=== PATIENT | male | born 1940 | race Caucasian/White ===

== ENCOUNTER → 2018-01-04 | Outpatient (CLI) | payer MEDICARE ==
[~2018-01-04] MED LIST: ALDACTONE25 MG PO; AMARYL2 M1 PO; AMINO ACID1 EACH PO; ASPIR 8181 MG PO; CALCITRIOL0.25 MCG PO; CATAPRES0.1 MG PO; CETIRIZINE HCL5 MG PO; COREG6.25 MG PO; COUMADIN 3 MG TA3 M1 PO; ENOXAPARIN30 MG/0.1 SUBQ; ENTRESTO 49 MG1 EACH PO; ENTRESTO 97 MG1 EACH PO; FLONASE 0.05%50 MCG NASAL; GLUCOPHAGE1000 MG PO; HYDROCHLOROTH12.5 M1 PO; HYDROCHLOROTHIA25 M2 PO; HYDROCODON-ACE1 EAC7 PO; HYDROCODONE-AP1 EAC6 PO; HYDROXYCHLOROQ200 M1 PO; IMURAN 50MG TAB50 M1 PO; KEFLEX500 MG PO; LASIX 40 MG TAB40 M2 PO; LEVOTHYROXINE0.05 MG PO; LISINOPRIL20 MG PO; MECLIZINE HCL12.5 MG PO; METFORMIN HCL500 MG PO; MUCINEX600 MG PO; OMEGA-31000 M1 PO; PRINIVIL20 MG PO; TRANSDERM-SCOP1 EACH TRANSDERM; UNICOMPLEX M TA1 TA1 PO; ZESTRIL20 MG PO; [UNRECOGNIZED DRUG - OTHER] PO
[2018-01-04 13:53] LABS: ABSOLUTE BASOPHILS 0.1 thou/uL (0.0-0.2); ABSOLUTE EOSINOPHILS 0.3 thou/uL (0.0-0.7); ABSOLUTE LYMPHOCYTES 1.1 thou/uL (0.8-5.3); ABSOLUTE MONOCYTES 0.6 thou/uL (0.0-1.2); ABSOLUTE NEUTROPHILS 4.7 thou/uL (1.6-8.1); BASOPHILS 1.2 %; EOSINOPHILS 3.7 %; HEMATOCRIT 44.4 % (42.0-52.0); LYMPHOCYTES 16.9 %; MCH 32.5 pg (26.0-34.0); MCHC 33.9 g/dL (28.0-37.0); MCV 95.9 fL (80.0-100.0); MONOCYTES 8.5 %; MPV 9.9 fl. (7.2-11.1); NUCLEATED RBCS 0 /100WBC; PLATELET COUNT* 165 thou/uL (150-400); POLYS 69.7 %; RBC 4.62 mil/uL (4.50-6.00); RDW-CV 14.1 % (10.5-14.5); WBC 6.7 thou/uL (4.0-11.0)
[2018-01-04 14:15] LABS: ALBUMIN 3.9 g/dL (3.4-5.0); CALCIUM 9.2 mg/dL (8.5-10.1); CREATININE 1.6 mg/dL (0.6-1.3); PHOSPHORUS* 3.3 mg/dL (2.5-4.9); POTASSIUM 4.3 mmol/L (3.5-5.1)
[2018-01-04 21:07] LABS: eGFR IF AFRICAN AMERICAN 51 (>59)
[2018-01-05 09:09] LABS: PARATHYROID HORMONE 49 pg/mL (15-65)
== END ==
LOC: M.LAB 13:27
PROVIDERS: Internal Medicine Nephrology
DX: N18.3 Chronic kidney disease, stage 3 (moderate) (principal); I48.91 Unspecified atrial fibrillation; I42.9 Cardiomyopathy, unspecified

== ENCOUNTER 2018-01-05 18:37 | Inpatient (IN) | payer MEDICARE ==
[~2018-01-05] VITALS: Ht 182.9 cm; Wt 96.2 kg
[~2018-01-05 18:37] MED LIST changes: -CETIRIZINE HCL5 MG PO; -ENTRESTO 97 MG1 EACH PO; -FLONASE 0.05%50 MCG NASAL; -MECLIZINE HCL12.5 MG PO; -MUCINEX600 MG PO; -TRANSDERM-SCOP1 EACH TRANSDERM
[2018-01-05 18:45] VITALS: BP 229/124
[2018-01-05 19:09] LABS: ABSOLUTE BASOPHILS 0.1 thou/uL (0.0-0.2); ABSOLUTE EOSINOPHILS 0.1 thou/uL (0.0-0.7); ABSOLUTE LYMPHOCYTES 0.9 thou/uL (0.8-5.3); ABSOLUTE MONOCYTES 0.4 thou/uL (0.0-1.2); EOSINOPHILS 1.3 %; HEMATOCRIT 46.5 % (42.0-52.0); HEMOGLOBIN 15.7 gm/dL (14.0-18.0); LYMPHOCYTES 11.6 %; MCH 32.5 pg (26.0-34.0); MCHC 33.9 g/dL (28.0-37.0); MCV 95.8 fL (80.0-100.0); MONOCYTES 5.6 %; NUCLEATED RBCS 0 /100WBC; PLATELET COUNT* 151 thou/uL (150-400); POLYS 80.5 %; RBC 4.85 mil/uL (4.50-6.00); RDW-CV 14.4 % (10.5-14.5); WBC 7.5 thou/uL (4.0-11.0)
[2018-01-05 19:14] LABS: ANION GAP 9 mmol/L (7-16); BUN 26 mg/dL (7-18); CALCIUM 9.5 mg/dL (8.5-10.1); CHLORIDE 104 mmol/L (98-107); CO2 28 mmol/L (21-32); CREATININE 1.5 mg/dL (0.6-1.3); GLUCOSE 164 mg/dL (70-99); POTASSIUM 4.1 mmol/L (3.5-5.1); SODIUM 141 mmol/L (136-145)
[2018-01-05 19:17] LABS: INR 2.1; PROTIME 20.5 Seconds (9.20-11.50)
[2018-01-05 19:21] LABS: ALBUMIN 3.9 g/dL (3.4-5.0); ALKALINE PHOSPHATASE 64 U/L (46-116); SGOT 20 U/L (15-37); SGPT 22 U/L (30-65); TOTAL BILIRUBIN 0.7 mg/dL (<0.1-1.0); TOTAL PROTEIN 7.9 g/dL (6.4-8.2); TROPONIN-I LEVEL <0.06 ng/mL (<0.06)
--- NOTE | 2018-01-05 20:38 | NUR ---
GAVE FOOD AND SPRITE TO PT AT THIS TIME.
--- NOTE | 2018-01-05 21:54 | NUR ---
ATTEMPTED TO GIVE REPORT AT 2144.
[2018-01-05 22:23] VITALS: BP 176/97
[2018-01-05 22:39] VITALS: BP 175/95
--- NOTE | 2018-01-05 23:08 | NUR ---
TOOK PT TO THE FLOOR AND GAVE REPORT TO THE MONITOR AND STORAGE BIN TENDER D/T THE CHARGE NURSE STATING SHE DID NOT HAVE TIME TO TAKE REPORT BECAUSE SHE WAS THE CHARGE NURSE. REPORT GIVEN TO TRACEY AT 2220.
[2018-01-05] MEDS ORDERED: ENTRESTO 97 MG1 EACH PO (23:44)
[2018-01-06] VITALS (8 sets, daily range): BP systolic 96–161; BP diastolic 53–102
--- NOTE | 2018-01-06 05:24 | NUR ---
PATIENT ARRIVED VIA CART FROM ED AROUND 2209. RECEIVED REPORT FROM Sasha WEBB. PT Awilda/CLIFF AND CHELA, REPORTING DIZZYNESS WHILE LYING DOWN. PT REPORTED NAUSEA BUT JUST WITH MOVEMENT AND DENIED WANTING ANY MEDS. V-PACED ON TELE MONITOR. ON ROOM AIR. IV SALINE LOCKED. UP SBA. BP ELEVATED, DR BROOKS NOTIFIED AND ORDERS RECEIVED FOR HS MEDS-SEE NOV. CALL LIGHT IN REACH, BEDALARM ON, WILL CONTINUE WITH PLAN OF CARE.
--- NOTE | 2018-01-06 09:30 | NUR ---
RECEIVED BEDSIDE REPORT. ASSUMED CARE OF PT AT 0730. BP ELEVATED OTHERWISE VSS. CARDIAC MONITORING IN PLACE A-PACED. AM ASSESSMENT AND VITALS COMPLETED CHARTED. PT ALERT AND ORIENTED X4 BUT FORGETFUL. PT ON RA. IV SLAINE LOCKED. PT CONTINUES TO HAVE REPORTS OF VERTIGO WITH STANDING. PT REPORTS HE LOST CONTROL OF BOWELS WHEN GETTING UP THIS AM. PT DENIES ANY COMPLAINTS OF PAIN OR DISCOMFORT THIS AM. DISCUSSED PLAN OF CARE WTIH PT AND SPOUSE. THEY COMMUNICATE UNDERSTANDING. CALL LIGHT IS WITHIN REACH. WILL CONTINUE TO MONITOR FOR DURAITON OF SHIFT.
--- NOTE | 2018-01-06 10:13 | EKG ---
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[place] : 1940 Requested By: Alana Mojica Order Number: [id number] MD: Jcarlos Carmona Measurements Intervals [place] Rate: 63 P: RI: QRS: 139 QRSD: 161 T: -51 QT: 479 QTc: 491 Interpretive Statements ventricular-paced rhythm No further analysis attempted due to paced rhythm Compared to ECG 08/01/2016 13:50:17 Ventricular premature complex(es) no longer present Electronically Signed On 01-06-2018 10:13:38 CDT by Jcarlos Carmona [email or web address] <ELECTRONICALLY SIGNED> By: Jcarlos Carmona MD, FACC 01/06/18 1013 16 16 Jcarlos Carmona MD, [facility] /EPI
--- NOTE | 2018-01-06 10:49 | NUR ---
CM ASSESSMENT: Pt is asleep, spoke with at bedside. Pt is normally A&O. Resides at home with his . Independent with ADLs, continues to drive and assist around the house as needed. No hx of HH. Hx of SNF at [facility]. Pt wears a cpap and home o2 at [facility] only, provided through [facility]. states that Pt continued to be dizzy this morning when he got up to use the restroom. Goal is to return home once medically stable. Following for disposition.
--- NOTE | 2018-01-06 17:11 | NUR ---
VSS. CARDIAC MONITORING IN PLACE WITH NO CHANGES THIS SHIFT. PT PROGRESSING TOWARDS GOALS. PT REMAINS ON RA. IV SALINE LOCKED. PT HAS HAD NO COMPLAINTS OF PAIN OR DISCOMFORT THIS SHIFT. PT'S VERTIGO HAS IMPROVED THIS SHIFT. PT WORKED WITH PHYSICAL THERAPY. CALL LIGHT IS WITHIN REACH. HOURLY ROUNDING. WILL CONTINUE TO MOTNIOR FOR [facility].
[2018-01-07 04:00] VITALS: BP 139/87
[2018-01-07 04:43] LABS: HEMATOCRIT 40.8 % (42.0-52.0); HEMOGLOBIN 13.9 gm/dL (14.0-18.0); MCH 32.4 pg (26.0-34.0); MCHC 34.1 g/dL (28.0-37.0); MCV 95.2 fL (80.0-100.0); MPV 10.6 fl. (7.2-11.1); RBC 4.29 mil/uL (4.50-6.00); RDW-CV 14.2 % (10.5-14.5); WBC 5.9 thou/uL (4.0-11.0)
[2018-01-07 04:47] LABS: INR 2.4; PROTIME 23.2 Seconds (9.20-11.50)
[2018-01-07 05:12] LABS: CALCIUM 9.5 mg/dL (8.5-10.1); CREATININE 1.8 mg/dL (0.6-1.3); POTASSIUM 3.6 mmol/L (3.5-5.1)
--- NOTE | 2018-01-07 06:49 | NUR ---
ASSUMED CARE AROUND 1930. PT A/OX4, APPEARS FORGETFUL AT TIMES, SLEPT SOME TONIGHT. VPACED ON TELE. VSS, AFEBRILE. ON ROOM AIR. IV SALINE LOCKED. UP SBA TO BR WITH WALKER. PT REPORTS SOME DIZZYNESS WITH ACTIVITY BUT NO NAUSEA THIS AM. PT REPORTS FEELING BETTER SO FAR TODAY. DENIED ANY PAIN. CALL LIGHT IN REACH, BEDALARM IN PLACE, WILL CONTINUE WITH PLAN OF CARE.
[2018-01-07 08:23] VITALS: BP 152/85
--- NOTE | 2018-01-07 10:40 | NUR ---
RECEIVED REPORT AND ASSUMED CARE AT 0730. VSS. CARDIAC MONITORING IN PLACE. PT DENIES ANY COMPLAINTS OF PAIN. PT UP WITH SBA IN ROOM, ON RA. ASSESSMENT COMPLETED CHARTED. PT EVALUATED BY PT/OT TODAY. DISCUSSED PLAN OF DM ITH PT AND HIS , VERBALIZED UNDERSTANDING. BED IN LOWEST POSITION. CALL LIGHT WITHIN REACH, BED ALARM ON. WILL CONTINUE TO MONITOR FOR REMAINDER OF THE SHIFT
[2018-01-07 10:56] VITALS: BP 141/86
[2018-01-07 10:57] VITALS: BP 147/81
[2018-01-07 10:58] VITALS: BP 151/86
[2018-01-07] MEDS ORDERED: TRANSDERM-SCOP1 EACH TRANSDERM (11:33)
[2018-01-07] MEDS ORDERED: CETIRIZINE HCL5 MG PO (11:33)
[2018-01-07] MEDS ORDERED: MUCINEX600 MG PO (11:33)
[2018-01-07] MEDS ORDERED: MECLIZINE HCL12.5 MG PO (11:33)
[2018-01-07] MEDS ORDERED: FLONASE 0.05%50 MCG NASAL (11:33)
[2018-01-07 13:55] VITALS: BP 151/86
--- NOTE | 2018-01-07 14:42 | NUR ---
DISCHARGE ORDERS PLACED IN CHART. CARDIAC MONITORING AND IV DISCONTINUED. PT DENIES ANY COMPLAINTS OF PAIN. DISCHARGE PAPERWORK COMPLETED AND DISCUSSED WITH PT AND HIS . ALL QUESTIONS AND CONCERNS ADDRESSED AT THIS TIME. PT ESCORTED BY NURSING STAFF IN W/C TO CAR. PT LEFT WITH IN THEIR PERSONAL CAR.
--- NOTE | 2018-01-12 17:26 | CON ---
[facility] [address] [place] [address] CONSULTATION Name: JOELLECHRISTOPHE Sissy Room: [address] IN .R.#: [id number] Admission: 01/05/18 Attend Phys: Karen Mejía Discharge: 01/07/18 Date of : 40 Report #: [id number] THIS REPORT FOR: //name// CC: Devendar Holloway DATE OF SERVICE: 01/06/2018 HISTORY OF PRESENT ILLNESS: This is a 77-year-old male patient who was evaluated by me for dizziness. He indicates that this morning he got up with the dizziness. It started spontaneously without any trauma. It was a severe dizziness. It had become somewhat better. Nothing makes it better or worse. REVIEW OF SYSTEMS: Indicate that he may have had dizziness like this before. He has a pacemaker, so he cannot have MRI. His GFR is 45, though that will make it difficult to do CT angio, so his workup neurologically is difficult. He still feels off balance. He had these symptoms before. They became better. He does have history of coronary artery disease, rheumatoid arthritis, high blood pressure and diabetes. REVIEW OF SYSTEMS: I carried out 14-point review of systems and this was his relevant 14-point review of system. When I saw him, he was not complaining of any eye, ENT, respiratory, GI, , musculoskeletal, constitutional, dermatological, hematological, psychiatric, throat, allergic symptom associated with present symptomatology. PAST MEDICAL HISTORY: Positive for dizziness like this, which became better. FAMILY HISTORY: Negative for any early age stroke. SOCIAL HISTORY: He is and his was there and she supplemented some of the history. He uses alcohol on special occasions. He does not smoke. PHYSICAL EXAMINATION: Indicate he is alert, responsive, able to follow simple and complex command. His speech, concentration, fund of knowledge and memory is at his baseline. Cranial nerve examination 2-12 looks unremarkable. Strength, sensation, reflexes and tone looks symmetrical. With diabetes, it does appear to be diminished. There is no cerebellar sign. I could not have a very good look at the patient's fundus. He is a well-developed individual who does not have any dysmorphic features of eyes, ears and face. His hearing and vision looks adequate. His pulses are somewhat difficult to feel. He has no edema, cyanosis or jaundice. His cardiac examinations indicate previous cardiac disease for which I will suggest Cardiology consult. No respiratory difficulty or rhonchi was noted. His blood pressure is 96/53. When he was admitted his blood pressure was 229/194. His pulse is 60 and temperature 97.4, respirations [place] 18[place] [address] CONSULTATION Name: CHRISTOPHE LAI Room: [address]#: [id number] Admission: 01/05/18 Attend Phys: Karen Mejía Discharge: 01/07/18 Date of : 40 Report #: [id number] LABORATORY DATA: His WBC count is 7.5. He did have a carotid Doppler, which showed mild plaquing. He did have a CT of the head, which did not show anything. IMPRESSION: I do not believe there is any neurological etiology for the patient's symptoms. I will suggest working up this patient for cardiac etiology, especially with so much fluctuation of the blood pressure, as well as other systemic etiologies including ENT. Neurological workup is difficult and is difficult to fully exclude the causes. He cannot have an MRI done because of pacemaker and cannot have a CT angio because of poor kidney function. I will suggest just working on the other etiologies in this patient. RECOMMENDATIONS: 1. I do not think we need to do any further neurological workup. 2. I will suggest a Cardiology consult, especially with such a wide fluctuation in the blood pressure and prior cardiac history. 3. I will also suggest an ENT consult. 4. If all that workup come out to be negative, then they can send him back and we can reevaluate him, but I do not believe presently any further neurological workup is needed in this patient. I did order a TSH and vitamin B12 to complete the workup, but otherwise nothing specific to add and we will sign off. Thank you very much for this referral. <ELECTRONICALLY SIGNED> By: Carmine Srinivasan MD 01/12/18 1726 1821 [id number] Srinivasan MD /nt
== END 2018-01-07 14:56 | disposition home or self-care (01) | DRG 153 ==
LOC: M.ERS 18:37 → M.TBA-ER 21:27 → M.2W 21:27
PROVIDERS: Internal Medicine; Nurse Practitioner Family; ADMIT Internal Medicine
DX: H65.00 Acute serous otitis media, unspecified ear (principal); I48.91 Unspecified atrial fibrillation; E11.9 Type 2 diabetes mellitus without complications; M06.9 Rheumatoid arthritis, unspecified; I12.9 Hypertensive chronic kidney disease with stage 1 through stage 4 chronic kidney disease, or unspecified chronic kidney disease; N18.3 Chronic kidney disease, stage 3 (moderate); R27.0 Ataxia, unspecified; Z95.0 Presence of cardiac pacemaker

== ENCOUNTER → 2018-02-01 | Outpatient (CLI) | payer MEDICARE ==
[~2018-02-01] MED LIST changes: +CETIRIZINE HCL5 MG PO; +ENTRESTO 97 MG1 EACH PO; +FLONASE 0.05%50 MCG NASAL; +MECLIZINE HCL12.5 MG PO; +MUCINEX600 MG PO; +TRANSDERM-SCOP1 EACH TRANSDERM
--- NOTE | 2018-02-01 15:33 | 2DMMODE ---
[place] [address] 2 D/M-MODE ECHOCARDIOGRAM Name: CHRISTOPHE LAI Room: [facility]#: [id number] Admission: 02/01/18 Attend Phys: Aldo Palacios, Discharge: Date of : 40 Date of Service: 02/01/18 1533 Report #: [id number] THIS REPORT FOR: //name// APPROVED REPORT Study performed: 02/01/2018 13:07:20 EXAM: Comprehensive 2D, Doppler, and color-flow Echocardiogram Patient Location: Out-Patient Status: routine BSA: 2.26 HR: 60 bpm BP: 140/92 mmHg Other Information Study Quality: Adequate Indications Congestive Heart Failure 2D Dimensions LVEF(%): 69.45 (>50%) IVSd: 13.67 (7-11mm) LVOT Diam: 20.99 (18-24mm) LVDd: 59.87 mm PWd: 13.20 (7-11mm) Ascending Ao: 36.98 (22-36mm) LVDs: 36.08 (25-40mm) Aortic Root: 26.34 mm Jay's LVEF: 69.45 % Volumes Left Atrial Volume (Systole) LA ESV Index: 40.20 mL/m2 Aortic Valve AoV Peak Ron.: 1.14 m/s AO Peak Gr.: 5.22 mmHg LVOT Max P.41 mmHg AO Mean Gr.: 3.15 mmHg LVOT Mean P.00 mmHg LVOT Max V: 0.78 m/s AO V2 VTI: 21.20 cm LVOT Mean V: 0.45 m/s YUMIKO (VTI): 2.26 cm2 LVOT V1 VTI: 13.85 cm Mitral Valve MV Decel. Time: 180.49 ms MV PHT: 52[place]34 [place] [address] 2 D/M-MODE ECHOCARDIOGRAM Name: JOELLECHRISTOPHE G Room: [facility]#: [id number] Admission: 02/01/18 Attend Phys: Aldo Palacios, Discharge: Date of : 40 Date of Service: 02/01/18 1533 Report #: [id number] MVA (PHT): 4.20 cm2 TDI Medial E' Ron.: 0.10 m/s Lateral E' Ron.: 0.09 m/s Pulmonary Valve PV Peak Ron.: 0.91 m/s PV Peak Gr.: 3.33 mmHg Tricuspid Valve TR Peak Gr.: 31.88 mmHg RVSP: 36.88 mmHg Left Ventricle The left ventricle is normal size. There are segmental wall motion abnormalities with inferbasilar and lateral hypokinesis suggested. Mild concentric left ventricular hypertrophy. Left ventricular systolic function is moderately decreased. LVEF is 40%. Right Ventricle The right ventricle is normal size. The right ventricular systolic function is normal. Pacemaker lead is present in the right ventricle. Atria Left atrium is mildly dilated. Pacemaker lead is present in the right atrium. Aortic Valve Aortic valve is mildly calcified. Trace aortic regurgitation. There is no aortic valvular stenosis. Mitral Valve The mitral valve is normal in structure. Mild to moderate mitral regurgitation. No evidence of mitral valve stenosis. Tricuspid Valve The tricuspid valve is normal in structure. Mild tricuspid regurgitation. The RVSP is _36.9 mmHg. Pulmonic Valve The pulmonary valve is normal in structure. There is no pulmonic valvular regurgitation. Great Vessels The aortic root is normal in size. IVC is normal in size and collapses with >50% [place] [address] 2 D/M-MODE ECHOCARDIOGRAM Name: CHRISTOPHE LAI Room: [facility]#: [id number] Admission: 02/01/18 Attend Phys: Aldo Palacios, Discharge: Date of : 40 Date of Service: 02/01/18 1533 Report #: [id number] Pericardium There is no pericardial effusion. <Conclusion> The left ventricle is normal size. Mild concentric left ventricular hypertrophy. Left ventricular systolic function is moderately decreased. LVEF is 40%. The right ventricle is normal size. Left atrium is mildly dilated. Aortic valve is mildly calcified. Trace aortic regurgitation. There is no aortic valvular stenosis. The mitral valve is normal in structure. Mild to moderate mitral regurgitation. No evidence of mitral valve stenosis. The tricuspid valve is normal in structure. Mild tricuspid regurgitation. The RVSP is _36.9 mmHg. IVC is normal in size and collapses with >50% inspiration There is no pericardial effusion. There are segmental wall motion abnormalities with inferbasilar and lateral hypokinesis suggested. Pacemaker lead is present in the right ventricle. <ELECTRONICALLY SIGNED> By: Aj Syed MD, FACC 02/01/18 1533 1533 1533 Aj Syed MD, FACC /INF
== END ==
LOC: M.CRD 12:53
DX: I42.8 Other cardiomyopathies (principal)

== ENCOUNTER → 2018-07-07 | Outpatient (CLI) | payer MEDICARE ==
[2018-07-07 12:57] LABS: ABSOLUTE BASOPHILS 0.1 thou/uL (0.0-0.2); ABSOLUTE EOSINOPHILS 0.1 thou/uL (0.0-0.7); ABSOLUTE LYMPHOCYTES 0.8 thou/uL (0.8-5.3); ABSOLUTE MONOCYTES 0.4 thou/uL (0.0-1.2); ABSOLUTE NEUTROPHILS 3.3 thou/uL (1.6-8.1); BASOPHILS 1.3 %; EOSINOPHILS 2.9 %; HEMATOCRIT 43.2 % (42.0-52.0); HEMOGLOBIN 14.6 gm/dL (14.0-18.0); LYMPHOCYTES 16.3 %; MCH 32.9 pg (26.0-34.0); MCHC 33.7 g/dL (28.0-37.0); MCV 97.5 fL (80.0-100.0); MONOCYTES 8.2 %; MPV 10.1 fl. (7.2-11.1); NUCLEATED RBCS 0 /100WBC; PLATELET COUNT* 143 thou/uL (150-400); POLYS 71.3 %; RBC 4.43 mil/uL (4.50-6.00); RDW-CV 14.5 % (10.5-14.5); WBC 4.7 thou/uL (4.0-11.0)
[2018-07-07 13:23] LABS: ALBUMIN 3.6 g/dL (3.4-5.0); CALCIUM 9.5 mg/dL (8.5-10.1); CREATININE 1.8 mg/dL (0.6-1.3); PHOSPHORUS* 2.7 mg/dL (2.5-4.9); POTASSIUM 4.1 mmol/L (3.5-5.1)
[2018-07-07 14:00] LABS: INR 2.1; PROTIME 21.5 Seconds (9.20-11.50)
[2018-07-07 19:08] LABS: eGFR IF AFRICAN AMERICAN 41 (>59)
[2018-07-08 12:06] LABS: PARATHYROID HORMONE 35 pg/mL (15-65)
== END ==
LOC: M.LAB 12:31
PROVIDERS: Internal Medicine Nephrology
DX: I12.9 Hypertensive chronic kidney disease with stage 1 through stage 4 chronic kidney disease, or unspecified chronic kidney disease (principal); E11.22 Type 2 diabetes mellitus with diabetic chronic kidney disease; N18.3 Chronic kidney disease, stage 3 (moderate); I50.9 Heart failure, unspecified; M06.9 Rheumatoid arthritis, unspecified; Z72.89 Other problems related to lifestyle

== ENCOUNTER → 2019-01-03 | Outpatient (CLI) | payer MEDICARE ==
[2019-01-03 11:41] LABS: ABSOLUTE BASOPHILS 0.1 thou/uL (0.0-0.2); ABSOLUTE EOSINOPHILS 0.2 thou/uL (0.0-0.7); ABSOLUTE LYMPHOCYTES 0.8 thou/uL (0.8-5.3); ABSOLUTE MONOCYTES 0.4 thou/uL (0.0-1.2); ABSOLUTE NEUTROPHILS 3.2 thou/uL (1.6-8.1); BASOPHILS 1.4 %; EOSINOPHILS 4.3 %; HEMATOCRIT 41.9 % (42.0-52.0); HEMOGLOBIN 14.2 gm/dL (14.0-18.0); MCH 32.4 pg (26.0-34.0); MCHC 33.9 g/dL (28.0-37.0); MCV 95.6 fL (80.0-100.0); MONOCYTES 8.8 %; MPV 9.3 fl. (7.2-11.1); NUCLEATED RBCS 0 /100WBC; PLATELET COUNT* 153 thou/uL (150-400); POLYS 67.5 %; RBC 4.38 mil/uL (4.50-6.00); RDW-CV 14.4 % (10.5-14.5); WBC 4.7 thou/uL (4.0-11.0)
[2019-01-03 11:51] LABS: ALBUMIN 3.6 g/dL (3.4-5.0); CALCIUM 9.2 mg/dL (8.5-10.1); CREATININE 1.7 mg/dL (0.6-1.3); PHOSPHORUS* 2.7 mg/dL (2.5-4.9)
[2019-01-03 12:00] LABS: CREATININE 1.7 mg/dL (0.6-1.3); PHOSPHORUS* 2.8 mg/dL (2.5-4.9)
== END ==
LOC: M.LAB 11:21
PROVIDERS: Internal Medicine Nephrology
DX: E11.29 Type 2 diabetes mellitus with other diabetic kidney complication (principal); I50.9 Heart failure, unspecified

== ENCOUNTER → 2019-01-10 | Outpatient (CLI) | payer MEDICARE ==
--- NOTE | 2019-01-10 13:33 | 2DMMODE ---
[place] [address] 2 D/M-MODE ECHOCARDIOGRAM Name: CHRISTOPHE LAINN Room: [facility]#: [id number] Admission: 01/10/19 Attend Phys: Aldo Palacios, Discharge: Date of : 40 Date of Service: 01/10/19 1333 Report #: [id number] THIS REPORT FOR: //name// APPROVED REPORT Study performed: 01/10/2019 11:03:45 EXAM: Comprehensive 2D, Doppler, and color-flow Echocardiogram Patient Location: Out-Patient BSA: 2.27 HR: 60 bpm BP: 140/90 mmHg Other Information Study Quality: Fair Indications Congestive Heart Failure Cardiomyopathy 2D Dimensions IVSd: 14.49 (7-11mm) LVOT Diam: 20.90 (18-24mm) LVDd: 52.32 mm PWd: 12.65 (7-11mm) Ascending Ao: 34.62 (22-36mm) LVDs: 46.11 (25-40mm) Aortic Root: 36.00 mm Volumes Left Atrial Volume (Systole) LA ESV Index: 30.90 mL/m2 Aortic Valve AoV Peak Ron.: 1.16 m/s AO Peak Gr.: 5.35 mmHg LVOT Max P.04 mmHg AO Mean Gr.: 2.92 mmHg LVOT Mean P.89 mmHg LVOT Max V: 0.71 m/s AO V2 VTI: 19.06 cm LVOT Mean V: 0.42 m/s YUMIKO (VTI): 2.45 cm2 LVOT V1 VTI: 13.61 cm Mitral Valve MV Decel. Time: 256.02 ms MV PHT: 74.25 ms MVA (PHT): 2.96 cm2 [place] [address] 2 D/M-MODE ECHOCARDIOGRAM Name: CHRISTOPHE LAI Room: [facility]#: [id number] Admission: 01/10/19 Attend Phys: Aldo Palacios, Discharge: Date of : 40 Date of Service: 01/10/19 1333 Report #: [id number] TDI Medial E' Ron.: 0.08 m/s Lateral E' Ron.: 0.08 m/s Pulmonary Valve PV Peak Ron.: 0.78 m/s PV Peak Gr.: 2.41 mmHg Tricuspid Valve RAP Estimate: 5.00 mmHg TR Peak Gr.: 36.95 mmHg RVSP: 41.95 mmHg PA Pressure: 41.95 mmHg Left Ventricle The left ventricle is normal size. There is inferobasilar hypo-akinesis. Borderline concentric left ventricular hypertrophy. Left ventricular systolic function is mildly decreased. LVEF is 45%. Right Ventricle The right ventricle is normal size. The right ventricular systolic function is normal. Pacemaker lead is present in the right ventricle. Atria Left atrium is mildly dilated. Pacemaker lead is present in the right atrium. Aortic Valve Aortic valve is mildly calcified. Trace aortic regurgitation. There is no aortic valvular stenosis. Mitral Valve The mitral valve is normal in structure. Mild to moderate mitral regurgitation. No evidence of mitral valve stenosis. Tricuspid Valve The tricuspid valve is normal in structure. Mild to moderate tricuspid regurgitation. Pulmonic Valve The pulmonary valve is normal in structure. There is no pulmonic valvular regurgitation. Great Vessels The aortic root is normal in size. IVC is normal in size and collapses <50% [place] [address] 2 D/M-MODE ECHOCARDIOGRAM Name: CHRISTOPHE LAI Room: [facility]#: [id number] Admission: 01/10/19 Attend Phys: Aldo Palacios, Discharge: Date of : 40 Date of Service: 01/10/19 1333 Report #: [id number] Pericardium There is no pericardial effusion. <Conclusion> The left ventricle is normal size. Borderline concentric left ventricular hypertrophy. Left ventricular systolic function is mildly decreased. LVEF is 45%. The right ventricle is normal size. Left atrium is mildly dilated. Aortic valve is mildly calcified. Trace aortic regurgitation. There is no aortic valvular stenosis. Mild to moderate mitral regurgitation. The tricuspid valve is normal in structure. Mild to moderate tricuspid regurgitation. IVC is normal in size and collapses <50% with inspiration. There is no pericardial effusion. There is inferobasilar hypo-akinesis. Pacemaker lead is present in the right ventricle. The mitral valve is normal in structure. <ELECTRONICALLY SIGNED> By: Aj Syed MD, [facility] 01/10/19 1333 1333 133 Aj Syed MD, FACC /INF
== END ==
LOC: M.CRD 10:21
DX: I08.3 Combined rheumatic disorders of mitral, aortic and tricuspid valves (principal); I11.0 Hypertensive heart disease with heart failure; I50.9 Heart failure, unspecified; I42.8 Other cardiomyopathies

== ENCOUNTER → 2019-07-01 | Outpatient (CLI) | payer MEDICARE ==
[2019-07-01 14:51] LABS: ABSOLUTE BASOPHILS 0.1 thou/uL (0.0-0.2); ABSOLUTE EOSINOPHILS 0.2 thou/uL (0.0-0.7); ABSOLUTE LYMPHOCYTES 0.9 thou/uL (0.8-5.3); ABSOLUTE MONOCYTES 0.5 thou/uL (0.0-1.2); ABSOLUTE NEUTROPHILS 3.4 thou/uL (1.6-8.1); BASOPHILS 1.1 %; EOSINOPHILS 4.2 %; HEMATOCRIT 40.2 % (42.0-52.0); HEMOGLOBIN 13.7 gm/dL (14.0-18.0); LYMPHOCYTES 18.5 %; MCH 33.2 pg (26.0-34.0); MCV 97.6 fL (80.0-100.0); MONOCYTES 9.4 %; MPV 10.1 fl. (7.2-11.1); NUCLEATED RBCS 0 /100WBC; PLATELET COUNT* 145 thou/uL (150-400); POLYS 66.8 %; RBC 4.12 mil/uL (4.50-6.00); RDW-CV 14.3 % (10.5-14.5); WBC 5.1 thou/uL (4.0-11.0)
[2019-07-01 15:00] LABS: ALBUMIN 3.4 g/dL (3.4-5.0); CREATININE 1.6 mg/dL (0.6-1.3); PHOSPHORUS* 2.9 mg/dL (2.5-4.9); POTASSIUM 4.1 mmol/L (3.5-5.1)
[2019-07-01 21:48] LABS: CALCIUM 8.7 mg/dL (8.5-10.1); CREATININE 1.6 mg/dL (0.6-1.3); PHOSPHORUS* 2.9 mg/dL (2.5-4.9)
[2019-07-29 13:26] LABS: INR 3.3; PROTIME 32.1 Seconds (9.20-11.50)
== END ==
LOC: M.LAB 14:20
PROVIDERS: Internal Medicine Nephrology
DX: I13.0 Hypertensive heart and chronic kidney disease with heart failure and stage 1 through stage 4 chronic kidney disease, or unspecified chronic kidney disease (principal); N18.3 Chronic kidney disease, stage 3 (moderate); I50.9 Heart failure, unspecified; E11.22 Type 2 diabetes mellitus with diabetic chronic kidney disease

== ENCOUNTER → 2020-06-14 | Outpatient (CLI) | payer MEDICARE ==
[2020-06-14 14:53] LABS: HEMATOCRIT 41.5 % (42.0-52.0); HEMOGLOBIN 13.9 gm/dL (14.0-18.0)
[2020-06-14 15:16] LABS: ALBUMIN 3.3 g/dL (3.4-5.0); CALCIUM 8.9 mg/dL (8.5-10.1); CREATININE 1.9 mg/dL (0.6-1.3); PHOSPHORUS* 2.5 mg/dL (2.5-4.9); POTASSIUM 4.4 mmol/L (3.5-5.1); TOTAL BILIRUBIN 0.9 mg/dL (<0.1-1.0); TOTAL PROTEIN 6.9 g/dL (6.4-8.2)
[2020-06-14 15:22] LABS: CALCIUM 8.7 mg/dL (8.5-10.1); CREATININE 1.9 mg/dL (0.6-1.3); PHOSPHORUS* 2.5 mg/dL (2.5-4.9)
== END ==
LOC: M.LAB 14:17
PROVIDERS: ATTEND Internal Medicine Nephrology
DX: N25.81 Secondary hyperparathyroidism of renal origin (principal); N18.3 Chronic kidney disease, stage 3 (moderate)

== ENCOUNTER → 2020-08-01 | Outpatient (CLI) | payer MEDICARE ==
[~2020-08-01] MED LIST changes: +COREG25 MG PO; +STIOLTO RESPIMAT4 GM INH; +VITAMIN D250 MCG PO
[2020-08-01 09:30] LABS: HEMATOCRIT 43.5 % (42.0-52.0); HEMOGLOBIN 14.7 gm/dL (14.0-18.0); MCH 32.6 pg (26.0-34.0); MCHC 33.7 g/dL (28.0-37.0); MCV 96.8 fL (80.0-100.0); RBC 4.49 mil/uL (4.50-6.00); RDW-CV 15.1 % (10.5-14.5); WBC 5.3 thou/uL (4.0-11.0)
[2020-08-01 09:37] LABS: CALCIUM 8.9 mg/dL (8.5-10.1); CREATININE 1.7 mg/dL (0.6-1.3); POTASSIUM 4.1 mmol/L (3.5-5.1)
[2020-08-01 09:41] LABS: INR 2.2; PROTIME 21.9 Seconds (9.20-11.50)
--- NOTE | 2020-08-01 11:37 | EKG ---
[place] [address] ELECTROCARDIOGRAM REPORT Name: JOELLECHRISTOPHE FAINA Room: 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1940 Requested By: Jonathan Khoury Order Number: [id number] Reading MD: Jcarlos Carmona Measurements Intervals [place] Rate: 62 P: 0 NV: 200 QRS: 269 QRSD: 157 T: 109 QT: 473 QTc: 481 Interpretive Statements Ventricular-paced rhythm No further analysis attempted due to paced rhythm Compared to ECG 01/05/2018 19:17:02 No significant changes Electronically Signed On 08-01-2020 11:37:10 EXPOSURE MACHINE OPERATOR by Jcarlos Carmona [email or web address] <ELECTRONICALLY SIGNED> By: Jcarlos Carmona MD, [facility] 08/01/20 1137 0942 0942 Jcarlos Carmona MD, [facility] /EPI
== END ==
LOC: M.LAB 07-31 08:25
PROVIDERS: ATTEND Surgery
DX: Z01.812 Encounter for preprocedural laboratory examination (principal); Z20.828 Contact with and (suspected) exposure to other viral communicable diseases; K40.90 Unilateral inguinal hernia, without obstruction or gangrene, not specified as recurrent; I49.8 Other specified cardiac arrhythmias

== ENCOUNTER → 2020-08-07 | Day surgery (SDC) | payer MEDICARE ==
[~2020-08-07] MED LIST changes: +OXYCODONE HCL 55 MG PO; +PERCOCET 5-3251 EACH PO
--- NOTE | ~2020-08-07 | OP ---
[address] [address] OPERATIVE REPORT Name: JOELLECHRISTOPHE EISENBERG Room: [facility]#: [id number] Admission: 08/07/20 Attend Phys: Jonathan Khoury DO Discharge: Date of : 40 Report #: [id number] THIS REPORT FOR: //name// cc: Devendra Knutson Bradley L. DO ~ CC: Jonathan Palacios DICTATED BY: Sage Saldivar DO DATE OF SERVICE: 08/07/2020 PREOPERATIVE DIAGNOSIS: Incarcerated umbilical hernia. POSTOPERATIVE DIAGNOSIS: Incarcerated umbilical hernia. PRIMARY SURGEON: Jonathan Khoury DO CO-SURGEON: Sage Saldivar DO, PGY4. 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 OPERATION PERFORMED: Umbilical hernia repair with mesh. ANESTHESIA TYPE: General and local. ESTIMATED BLOOD LOSS: 5 mL. SPECIMEN REMOVED: Hernia sac and contents, incarcerated omentum. COMPLICATIONS: None. FINDINGS: Omentum containing incarcerated umbilical hernia. IMPLANTS: Ventralex ST 6.4 cm round hernia mesh. INDICATIONS FOR PROCEDURE: The patient is a pleasant 80-year-old male who presented to the office with chief complaint of umbilical bulge and pain and tenderness associated with it with some overlying skin discoloration. We recommended outpatient open hernia repair with mesh. Full discussion of procedure, alternatives, risks, and possible complications were discussed include but not limited to bleeding, infection, postoperative pain, scarring, hernia recurrence, need for further surgery, injury to other underlying abdominal structures mainly bowel, mesh complications, need for mesh removal and anesthesia risks. The patient voiced understanding of these risks and agreed to [address] [address] OPERATIVE REPORT Name: CHRISTOPHE LAI Room: [facility].#: [id number] Admission: 08/07/20 Attend Phys: Jonathan Khoury, DO Discharge: Date of : 40 Report #: [id number] proceed with surgery. DESCRIPTION OF PROCEDURE: The patient was again seen and examined in the preoperative holding area. Fully informed written consent was obtained. The surgical site was marked with a marking pen. The patient received 2 grams Ancef for preoperative antibiotics. He was subsequently transported to the operating room suite and placed on the operating room table in a comfortable supine position. At this time, anesthesia induced general anesthesia via LMA and this was successful. Arms were outstretched on arm boards. SCDs were placed to bilateral lower extremity calves. Grounding pad was placed to the right lateral thigh. All extremities and joints were padded and protected. Safety strap and warm blankets were placed across the patient's lap. Upper extremity Jong Hugger and warm blankets were placed across the patient's chest. The patient was then prepped and draped using standard sterile fashion. Time-out was performed prior to the onset of the procedure. I began by making a horizontal incision just superior to the umbilicus. We then dissected down through dermis and subcutaneous tissue using electrocautery and Adson's forceps to grasping the skin. The umbilical stalk was dissected out circumferentially. The hernia sac and contents were dissected free from the umbilical stalk. Umbilical stalk was ligated at the base of the fascia. The hernia sac was entered at the fascial defect edge and this was ligated circumferentially around the base. The hernia sac was then inverted over the incarcerated omentum and a small portion of omentum and hernia sac were ligated and sent off to the back table to be sent for permanent pathology. The remainder of the omentum was then reduced back into the peritoneal cavity. Finger sweep was performed to ensure there were no intra-abdominal adhesions and there was adequate landing supply for mesh. The defect was approximately 2-2.5 cm. A 6.[address] hernia mesh was opened on the back table drown into normal saline and placed into the abdomen, as an underlay mesh. This was then sutured into place using interrupted 0 Prolenes first at the left and right apices using the provided strap. Then, the remainder of the mesh and fascia was closed using interrupted Prolene suture. Once the fascia was closed, the mesh was sewn in place. The umbilical stalk was reimplanted into the fascia using a 3-0 Vicryl. A layered closure was then performed using 3-0 Vicryl in an interrupted fashion of the subcutaneous and deep dermal layers. Skin was then closed using a running subcuticular 4-0 Monocryl and 30 mL of 0.5% Marcaine were injected for total for local anesthetic. The abdomen was cleansed with wet and dry lap and sterile dressing and Dermabond skin glue was applied. An abdominal binder was then placed after the procedure before the patient went to the PACU. He was extubated in the OR and transferred to PACU in stable condition after brief recovery from anesthesia. [address] [address] OPERATIVE REPORT Name: JOELLE,CHRISTOPHE FAINA Room: [facility]#: [id number] Admission: 08/07/20 Attend Phys: Jonathan Khoury DO Discharge: Date of : 40 Report #: [id number] PLAN: Discharged to home. Follow up in the office with Dr. Khoury in 1 week. By: 1325 [id number] Khoury DO /nt
[2020-08-07 09:38] LABS: INR 1.1; PROTIME 11.6 Seconds (9.20-11.50)
--- NOTE | 2020-08-09 17:07 | PATH ---
[address] [address] PATHOLOGY RPT PROCEDURE Name: CHRISTOPHE LAI Room: [facility].R.#: [id number] Admission: 08/07/20 Date of : 40 Discharge: Report #: [id number] Path Case #: [id number] [facility] Accession Number: [id number] . 01 Material submitted: . hernia - HERNIA SAC, INCARCERATED OMENTUM . 01 Clinical history: . UMBILICAL HERNIA; INCARCERATED UMBILICAL HERNIA . 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 (VANESA:pit 08/09/2020) QTP 08/09/2020 1310 Local . 02 Electronically signed: . Meng Mo MD, Pathologist NPI- [id number] . 01 Gross description: . The specimen is received in formalin, labeled "Kandis, Christophe, hernia sac and incarcerated omentum" and consists of a segment of pink-dill membranous tissue and yellow orange lobulated tissue measuring 4.5 x 2.8 x 2.3 cm. Sectioning reveals focal congestion and no gross lesions. End Packer tissue is submitted in A1. (SDY; 08/08/2020) SYU/SYU 08/08/2020 1326 Local . 02 Pathologist provided ICD-10: K42.9 . 02 CPT . 744507 Specimen Comment: A courtesy copy of this report has been sent to [phone], [phone] Specimen Comment: [phone], Specimen Comment: Report sent to ,DR JARRELL / DR MCAEDO Performed at: [address] [facility] [address], [place], [place] [id number] MD Orestes Miner MD Phone: [phone] Performed at: 02 [facility] [place] [address], [place], [place] [id number] MD Meng Mo MD Phone: [phone]
== END | disposition home or self-care (01) ==
LOC: M.SUR 08:57
PROVIDERS: ATTEND Surgery
DX: K42.0 Umbilical hernia with obstruction, without gangrene (principal); I13.0 Hypertensive heart and chronic kidney disease with heart failure and stage 1 through stage 4 chronic kidney disease, or unspecified chronic kidney disease; I50.22 Chronic systolic (congestive) heart failure; E11.22 Type 2 diabetes mellitus with diabetic chronic kidney disease; N18.2 Chronic kidney disease, stage 2 (mild); I48.20 Chronic atrial fibrillation, unspecified; I42.8 Other cardiomyopathies; G47.30 Sleep apnea, unspecified; Z79.899 Other long term (current) drug therapy; Z98.890 Other specified postprocedural states; Z95.810 Presence of automatic (implantable) cardiac defibrillator; Z82.49 Family history of ischemic heart disease and other diseases of the circulatory system

== ENCOUNTER → 2020-12-21 | Outpatient (CLI) | payer MEDICARE ==
[2020-12-21 12:13] LABS: ABSOLUTE BASOPHILS 0.1 thou/uL (0.0-0.2); ABSOLUTE EOSINOPHILS 0.2 thou/uL (0.0-0.7); ABSOLUTE MONOCYTES 0.4 thou/uL (0.0-1.2); ABSOLUTE NEUTROPHILS 3.9 thou/uL (1.6-8.1); BASOPHILS 1.2 %; EOSINOPHILS 3.9 %; HEMATOCRIT 44.9 % (42.0-52.0); HEMOGLOBIN 14.9 gm/dL (14.0-18.0); LYMPHOCYTES 18.6 %; MCHC 33.2 g/dL (28.0-37.0); MCV 96.2 fL (80.0-100.0); MONOCYTES 7.2 %; NUCLEATED RBCS 0 /100WBC; PLATELET COUNT* 154 thou/uL (150-400); POLYS 69.1 %; RBC 4.67 mil/uL (4.50-6.00); RDW-CV 14.5 % (10.5-14.5); WBC 5.6 thou/uL (4.0-11.0)
[2020-12-21 12:23] LABS: ALBUMIN 3.6 g/dL (3.4-5.0); CALCIUM 9.6 mg/dL (8.5-10.1); CREATININE 1.6 mg/dL (0.6-1.3); POTASSIUM 4.2 mmol/L (3.5-5.1)
[2020-12-21 12:33] LABS: CALCIUM 8.9 mg/dL (8.5-10.1); CREATININE 1.6 mg/dL (0.6-1.3); PHOSPHORUS* 2.9 mg/dL (2.5-4.9)
== END ==
LOC: M.LAB 11:47
PROVIDERS: ATTEND Internal Medicine Nephrology
DX: N18.32 Chronic kidney disease, stage 3b (principal)

== ENCOUNTER → 2021-04-12 | Outpatient (CLI) | payer MEDICARE | LOC: M.CT 07:45 | PROVIDERS: ATTEND Family Medicine | DX: K86.2 Cyst of pancreas (principal); N28.1 Cyst of kidney, acquired; N20.0 Calculus of kidney; M47.816 Spondylosis without myelopathy or radiculopathy, lumbar region ==

== ENCOUNTER 2021-09-08 11:58 | Emergency (ER) | payer MEDICARE ==
[~2021-09-08] VITALS: Ht 182.9 cm; Wt 96.2 kg
[2021-09-08 13:05] LABS: ABSOLUTE BASOPHILS 0.1 thou/uL (0.0-0.2); ABSOLUTE EOSINOPHILS 0.2 thou/uL (0.0-0.7); ABSOLUTE LYMPHOCYTES 0.6 thou/uL (0.8-5.3); ABSOLUTE MONOCYTES 0.4 thou/uL (0.0-1.2); ABSOLUTE NEUTROPHILS 4.8 thou/uL (1.6-8.1); BASOPHILS 0.9 %; EOSINOPHILS 2.6 %; HEMOGLOBIN 12.2 gm/dL (14.0-18.0); LYMPHOCYTES 10.1 %; MCH 32.3 pg (26.0-34.0); MCHC 33.8 g/dL (28.0-37.0); MCV 95.5 fL (80.0-100.0); MONOCYTES 6.9 %; MPV 10.1 fl. (7.2-11.1); NUCLEATED RBCS 0 /100WBC; PLATELET COUNT* 137 thou/uL (150-400); POLYS 79.5 %; RBC 3.77 mil/uL (4.50-6.00); RDW-CV 13.5 % (10.5-14.5); WBC 6.1 thou/uL (4.0-11.0)
[2021-09-08] MEDS ORDERED: WARFARIN SODIUM3 MG PO (13:11)
[2021-09-08] MEDS ORDERED: WARFARIN SODIUM5 MG PO (13:11)
[2021-09-08 13:13] LABS: CALCIUM 8.5 mg/dL (8.5-10.1); CREATININE 1.8 mg/dL (0.6-1.3); POTASSIUM 3.9 mmol/L (3.5-5.1)
[2021-09-08] MEDS ORDERED: ENTRESTO 97 MG1 EACH PO (13:13)
[2021-09-08 13:17] LABS: INR 3.2; PROTIME 31.9 Seconds (9.20-11.50)
[2021-09-08] MEDS ORDERED: DOXYCYCLINE 10100 MG PO (13:50)
[2021-09-08 14:11] VITALS: BP 98/53
== END 2021-09-08 14:12 | disposition home or self-care (01) ==
LOC: M.ERS 11:58
PROVIDERS: Physician Assistant
DX: S80.11XA Contusion of right lower leg, initial encounter (principal); E11.9 Type 2 diabetes mellitus without complications; I50.9 Heart failure, unspecified; M19.90 Unspecified osteoarthritis, unspecified site; E03.9 Hypothyroidism, unspecified; Z79.899 Other long term (current) drug therapy; X58.XXXA Exposure to other specified factors, initial encounter; Y93.89 Activity, other specified; Y92.89 Other specified places as the place of occurrence of the external cause; Y99.8 Other external cause status

== ENCOUNTER 2021-09-13 13:14 | Inpatient (IN) | payer MEDICARE ==
[~2021-09-13] VITALS: Ht 182.9 cm; Wt 101.2 kg
[~2021-09-13 13:14] MED LIST changes: +DOXYCYCLINE 10100 MG PO; +WARFARIN SODIUM3 MG PO; +WARFARIN SODIUM5 MG PO
[2021-09-13 14:01] VITALS: BP 130/66
[2021-09-13 14:18] LABS: ABSOLUTE EOSINOPHILS 0.2 thou/uL (0.0-0.7); ABSOLUTE LYMPHOCYTES 0.6 thou/uL (0.8-5.3); ABSOLUTE MONOCYTES 0.5 thou/uL (0.0-1.2); ABSOLUTE NEUTROPHILS 3.5 thou/uL (1.6-8.1); BASOPHILS 0.9 %; EOSINOPHILS 3.6 %; HEMATOCRIT 39.1 % (42.0-52.0); HEMOGLOBIN 12.9 gm/dL (14.0-18.0); MCV 96.9 fL (80.0-100.0); MONOCYTES 9.5 %; MPV 10.1 fl. (7.2-11.1); NUCLEATED RBCS 0 /100WBC; PLATELET COUNT* 157 thou/uL (150-400); RBC 4.04 mil/uL (4.50-6.00); RDW-CV 13.4 % (10.5-14.5); WBC 4.7 thou/uL (4.0-11.0)
--- NOTE | 2021-09-13 14:21 | EKG ---
[place] [address] ELECTROCARDIOGRAM REPORT Name: JOELLECHRISTOPHE EISENBERG Room: [facility]#: [id number] Admission: 09/13/21 Attend Phys: Discharge: Date of : 40 Date of Service: 09/13/21 1411 Report #: [id number] THIS REPORT FOR: //name// [facility] ED Test Date: 2021-09-13 Test Time: 14:11:24 Pat Name: CHRISTOPHE LAI Department: Room: Gender: [employer] Architect: [facility] : 1940 Requested By: Moses Briseno Order Number: [id number] MD: Aj Syed Measurements Intervals Isabella Rate: 62 P: 0 MT: 212 QRS: -74 QRSD: 167 T: 113 QT: 479 QTc: 487 Interpretive Statements Ventricular-paced rhythm No further analysis attempted due to paced rhythm Compared to ECG 08/01/2020 09:42:40 No significant changes Electronically Signed On 09-13-2021 14:21:05 [employer]PER[employer] by jA Syed [email or web address] <ELECTRONICALLY SIGNED> By: jA Syed MD, [facility] 09/13/21 142 10 10 Aj Syed MD, [facility] /EPI
[2021-09-13 14:36] LABS: CALCIUM 8.6 mg/dL (8.5-10.1); CREATININE 1.7 mg/dL (0.6-1.3); POTASSIUM 4.7 mmol/L (3.5-5.1)
[2021-09-13 14:41] LABS: ALBUMIN 2.9 g/dL (3.4-5.0); TOTAL BILIRUBIN 0.9 mg/dL (<0.1-1.0)
[2021-09-13 15:23] LABS: APTT 44.7 Seconds (25.0-31.3); INR 3.6; PROTIME 35.6 Seconds (9.20-11.50)
[2021-09-13 18:00] VITALS: BP 138/65
[2021-09-13 21:10] VITALS: BP 143/62
[2021-09-14 08:20] VITALS: BP 146/67
[2021-09-14 16:44] VITALS: BP 143/73
[2021-09-14 20:30] VITALS: BP 152/86
[2021-09-15 04:50] LABS: CALCIUM 8.3 mg/dL (8.5-10.1); CREATININE 1.6 mg/dL (0.6-1.3); POTASSIUM 3.8 mmol/L (3.5-5.1)
[2021-09-15 05:06] LABS: INR 2.3; PROTIME 22.5 Seconds (9.20-11.50)
[2021-09-15 08:00] VITALS: BP 165/83
[2021-09-15 14:58] VITALS: BP 165/83
[2021-09-15 15:56] VITALS: BP 149/82
[2021-09-15 17:16] LABS: ABSOLUTE BASOPHILS 0.1 thou/uL (0.0-0.2); ABSOLUTE EOSINOPHILS 0.2 thou/uL (0.0-0.7); ABSOLUTE LYMPHOCYTES 0.6 thou/uL (0.8-5.3); ABSOLUTE MONOCYTES 0.7 thou/uL (0.0-1.2); ABSOLUTE NEUTROPHILS 6.2 thou/uL (1.6-8.1); BASOPHILS 0.8 %; HEMATOCRIT 32.3 % (42.0-52.0); LYMPHOCYTES 8.3 %; MCH 32.5 pg (26.0-34.0); MCHC 33.8 g/dL (28.0-37.0); MCV 96.3 fL (80.0-100.0); MONOCYTES 9.5 %; MPV 9.5 fl. (7.2-11.1); NUCLEATED RBCS 0 /100WBC; PLATELET COUNT* 194 thou/uL (150-400); POLYS 79.4 %; RBC 3.35 mil/uL (4.50-6.00); RDW-CV 13.2 % (10.5-14.5); WBC 7.8 thou/uL (4.0-11.0)
[2021-09-15 17:30] LABS: HEMOGLOBIN 10.9 gm/dL (14.0-18.0)
[2021-09-15 17:55] VITALS: BP 165/83
[2021-09-15 18:37] VITALS: BP 165/83
== END 2021-09-15 18:38 | disposition home or self-care (01) | DRG 603 ==
LOC: M.ERS 13:14 → M.3W 15:36 → M.TBA-ER 15:36 → M.3W 21:01
PROVIDERS: Family Medicine; ADMIT Internal Medicine; ATTEND Internal Medicine
PROC: 5A09357 Assistance with Respiratory Ventilation, Less than 24 Consecutive Hours, Continuous Positive Airway Pressure (ICD-10-PCS; principal; 2021-09-14)
DX: L03.115 Cellulitis of right lower limb (principal); N17.9 Acute kidney failure, unspecified; S80.11XA Contusion of right lower leg, initial encounter; Z20.822 Contact with and (suspected) exposure to COVID-19; M06.9 Rheumatoid arthritis, unspecified; E11.9 Type 2 diabetes mellitus without complications; I50.9 Heart failure, unspecified; E03.9 Hypothyroidism, unspecified; S81.811A Laceration without foreign body, right lower leg, initial encounter; I11.0 Hypertensive heart disease with heart failure; M19.90 Unspecified osteoarthritis, unspecified site; Z95.0 Presence of cardiac pacemaker; Z23 Encounter for immunization; X58.XXXA Exposure to other specified factors, initial encounter; Y93.89 Activity, other specified; Y92.89 Other specified places as the place of occurrence of the external cause; Y99.8 Other external cause status; R58 Hemorrhage, not elsewhere classified

== ENCOUNTER → 2021-10-04 | Outpatient (CLI) | payer MEDICARE | LOC: M.WC 08:34 | PROVIDERS: ATTEND Family Medicine | DX: T81.89XA Other complications of procedures, not elsewhere classified, initial encounter (principal); E11.622 Type 2 diabetes mellitus with other skin ulcer; I70.238 Atherosclerosis of native arteries of right leg with ulceration of other part of lower leg; L97.812 Non-pressure chronic ulcer of other part of right lower leg with fat layer exposed; S81.801A Unspecified open wound, right lower leg, initial encounter; E11.65 Type 2 diabetes mellitus with hyperglycemia; I48.20 Chronic atrial fibrillation, unspecified; E11.40 Type 2 diabetes mellitus with diabetic neuropathy, unspecified; E11.22 Type 2 diabetes mellitus with diabetic chronic kidney disease; I13.2 Hypertensive heart and chronic kidney disease with heart failure and with stage 5 chronic kidney disease, or end stage renal disease; I50.9 Heart failure, unspecified; N18.6 End stage renal disease; M81.0 Age-related osteoporosis without current pathological fracture; M06.9 Rheumatoid arthritis, unspecified; E03.9 Hypothyroidism, unspecified; Z79.01 Long term (current) use of anticoagulants; Z79.899 Other long term (current) drug therapy; Z95.0 Presence of cardiac pacemaker; Z98.890 Other specified postprocedural states; W19.XXXA Unspecified fall, initial encounter; Y93.57 Activity, non-running track and field events; Y92.815 Train as the place of occurrence of the external cause; Y83.8 Other surgical procedures as the cause of abnormal reaction of the patient, or of later complication, without mention of misadventure at the time of the procedure; Y92.238 Other place in hospital as the place of occurrence of the external cause ==

== ENCOUNTER → 2021-10-07 | Outpatient (CLI) | payer MEDICARE | LOC: M.WC 13:00 | PROVIDERS: ATTEND Family Medicine | DX: T81.89XD Other complications of procedures, not elsewhere classified, subsequent encounter (principal); E11.622 Type 2 diabetes mellitus with other skin ulcer; I70.238 Atherosclerosis of native arteries of right leg with ulceration of other part of lower leg; L97.812 Non-pressure chronic ulcer of other part of right lower leg with fat layer exposed; S81.801D Unspecified open wound, right lower leg, subsequent encounter; E11.65 Type 2 diabetes mellitus with hyperglycemia; I48.20 Chronic atrial fibrillation, unspecified; E11.40 Type 2 diabetes mellitus with diabetic neuropathy, unspecified; E11.22 Type 2 diabetes mellitus with diabetic chronic kidney disease; I13.2 Hypertensive heart and chronic kidney disease with heart failure and with stage 5 chronic kidney disease, or end stage renal disease; I50.9 Heart failure, unspecified; N18.6 End stage renal disease; K21.9 Gastro-esophageal reflux disease without esophagitis; M81.0 Age-related osteoporosis without current pathological fracture; M06.9 Rheumatoid arthritis, unspecified; E03.9 Hypothyroidism, unspecified; Z79.01 Long term (current) use of anticoagulants; Z95.0 Presence of cardiac pacemaker; W19.XXXD Unspecified fall, subsequent encounter; Y83.8 Other surgical procedures as the cause of abnormal reaction of the patient, or of later complication, without mention of misadventure at the time of the procedure ==

== ENCOUNTER → 2021-10-09 | Outpatient (CLI) | payer MEDICARE | LOC: M.WC 12:58 | PROVIDERS: ATTEND Family Medicine | DX: T81.89XD Other complications of procedures, not elsewhere classified, subsequent encounter (principal); E11.622 Type 2 diabetes mellitus with other skin ulcer; I70.238 Atherosclerosis of native arteries of right leg with ulceration of other part of lower leg; L97.812 Non-pressure chronic ulcer of other part of right lower leg with fat layer exposed; S81.801D Unspecified open wound, right lower leg, subsequent encounter; E11.65 Type 2 diabetes mellitus with hyperglycemia; I48.20 Chronic atrial fibrillation, unspecified; E11.40 Type 2 diabetes mellitus with diabetic neuropathy, unspecified; E11.22 Type 2 diabetes mellitus with diabetic chronic kidney disease; I13.2 Hypertensive heart and chronic kidney disease with heart failure and with stage 5 chronic kidney disease, or end stage renal disease; I50.9 Heart failure, unspecified; N18.6 End stage renal disease; M81.0 Age-related osteoporosis without current pathological fracture; M06.9 Rheumatoid arthritis, unspecified; E03.9 Hypothyroidism, unspecified; Z79.01 Long term (current) use of anticoagulants; Z95.0 Presence of cardiac pacemaker; W19.XXXD Unspecified fall, subsequent encounter; Y83.8 Other surgical procedures as the cause of abnormal reaction of the patient, or of later complication, without mention of misadventure at the time of the procedure; K21.9 Gastro-esophageal reflux disease without esophagitis ==

== ENCOUNTER → 2021-10-11 | Outpatient (CLI) | payer MEDICARE | LOC: M.WC 09:43 | PROVIDERS: ATTEND Family Medicine | DX: S81.801D Unspecified open wound, right lower leg, subsequent encounter (principal); E11.622 Type 2 diabetes mellitus with other skin ulcer; I70.238 Atherosclerosis of native arteries of right leg with ulceration of other part of lower leg; L97.812 Non-pressure chronic ulcer of other part of right lower leg with fat layer exposed; E11.65 Type 2 diabetes mellitus with hyperglycemia; I48.20 Chronic atrial fibrillation, unspecified; E11.40 Type 2 diabetes mellitus with diabetic neuropathy, unspecified; E11.22 Type 2 diabetes mellitus with diabetic chronic kidney disease; I13.2 Hypertensive heart and chronic kidney disease with heart failure and with stage 5 chronic kidney disease, or end stage renal disease; I50.9 Heart failure, unspecified; N18.6 End stage renal disease; K21.9 Gastro-esophageal reflux disease without esophagitis; M81.0 Age-related osteoporosis without current pathological fracture; M06.9 Rheumatoid arthritis, unspecified; E03.9 Hypothyroidism, unspecified; Z79.01 Long term (current) use of anticoagulants; Z95.0 Presence of cardiac pacemaker; W19.XXXD Unspecified fall, subsequent encounter ==

== ENCOUNTER → 2021-10-18 | Outpatient (CLI) | payer MEDICARE | LOC: M.WC 08:01 | PROVIDERS: ATTEND Family Medicine | DX: T81.89XD Other complications of procedures, not elsewhere classified, subsequent encounter (principal); E11.622 Type 2 diabetes mellitus with other skin ulcer; I70.238 Atherosclerosis of native arteries of right leg with ulceration of other part of lower leg; L97.812 Non-pressure chronic ulcer of other part of right lower leg with fat layer exposed; S81.801D Unspecified open wound, right lower leg, subsequent encounter; E11.65 Type 2 diabetes mellitus with hyperglycemia; I48.20 Chronic atrial fibrillation, unspecified; E11.22 Type 2 diabetes mellitus with diabetic chronic kidney disease; I13.2 Hypertensive heart and chronic kidney disease with heart failure and with stage 5 chronic kidney disease, or end stage renal disease; I50.9 Heart failure, unspecified; N18.6 End stage renal disease; M81.0 Age-related osteoporosis without current pathological fracture; M06.9 Rheumatoid arthritis, unspecified; E03.9 Hypothyroidism, unspecified; Z79.01 Long term (current) use of anticoagulants; Z79.899 Other long term (current) drug therapy; Z95.0 Presence of cardiac pacemaker; X58.XXXD Exposure to other specified factors, subsequent encounter; Y83.8 Other surgical procedures as the cause of abnormal reaction of the patient, or of later complication, without mention of misadventure at the time of the procedure ==

== ENCOUNTER → 2021-10-25 | Outpatient (CLI) | payer MEDICARE | LOC: M.WC 09:42 | PROVIDERS: ATTEND Family Medicine | DX: T81.89XD Other complications of procedures, not elsewhere classified, subsequent encounter (principal); E11.622 Type 2 diabetes mellitus with other skin ulcer; I70.238 Atherosclerosis of native arteries of right leg with ulceration of other part of lower leg; L97.812 Non-pressure chronic ulcer of other part of right lower leg with fat layer exposed; S81.801D Unspecified open wound, right lower leg, subsequent encounter; E11.65 Type 2 diabetes mellitus with hyperglycemia; I48.20 Chronic atrial fibrillation, unspecified; E11.22 Type 2 diabetes mellitus with diabetic chronic kidney disease; I13.2 Hypertensive heart and chronic kidney disease with heart failure and with stage 5 chronic kidney disease, or end stage renal disease; I50.9 Heart failure, unspecified; N18.6 End stage renal disease; M81.0 Age-related osteoporosis without current pathological fracture; M06.9 Rheumatoid arthritis, unspecified; E03.9 Hypothyroidism, unspecified; Z79.01 Long term (current) use of anticoagulants; Z95.0 Presence of cardiac pacemaker; X58.XXXD Exposure to other specified factors, subsequent encounter; Y83.8 Other surgical procedures as the cause of abnormal reaction of the patient, or of later complication, without mention of misadventure at the time of the procedure ==

== ENCOUNTER → 2021-11-01 | Outpatient (CLI) | payer MEDICARE | LOC: M.WC 09:45 | PROVIDERS: ATTEND Family Medicine | DX: T81.89XD Other complications of procedures, not elsewhere classified, subsequent encounter (principal); E11.622 Type 2 diabetes mellitus with other skin ulcer; I70.238 Atherosclerosis of native arteries of right leg with ulceration of other part of lower leg; L97.812 Non-pressure chronic ulcer of other part of right lower leg with fat layer exposed; S81.801D Unspecified open wound, right lower leg, subsequent encounter; E11.65 Type 2 diabetes mellitus with hyperglycemia; I48.20 Chronic atrial fibrillation, unspecified; E11.22 Type 2 diabetes mellitus with diabetic chronic kidney disease; I13.2 Hypertensive heart and chronic kidney disease with heart failure and with stage 5 chronic kidney disease, or end stage renal disease; I50.9 Heart failure, unspecified; N18.6 End stage renal disease; K21.9 Gastro-esophageal reflux disease without esophagitis; M81.0 Age-related osteoporosis without current pathological fracture; M06.9 Rheumatoid arthritis, unspecified; E03.9 Hypothyroidism, unspecified; Z79.01 Long term (current) use of anticoagulants; Z95.0 Presence of cardiac pacemaker; W22.8XXD Striking against or struck by other objects, subsequent encounter; Y83.8 Other surgical procedures as the cause of abnormal reaction of the patient, or of later complication, without mention of misadventure at the time of the procedure ==

== ENCOUNTER → 2021-11-08 | Outpatient (CLI) | payer MEDICARE | LOC: M.WC 08:35 | PROVIDERS: ATTEND Family Medicine | DX: T81.89XD Other complications of procedures, not elsewhere classified, subsequent encounter (principal); E11.622 Type 2 diabetes mellitus with other skin ulcer; I70.238 Atherosclerosis of native arteries of right leg with ulceration of other part of lower leg; L97.812 Non-pressure chronic ulcer of other part of right lower leg with fat layer exposed; S81.801D Unspecified open wound, right lower leg, subsequent encounter; E11.65 Type 2 diabetes mellitus with hyperglycemia; I48.20 Chronic atrial fibrillation, unspecified; E11.22 Type 2 diabetes mellitus with diabetic chronic kidney disease; I13.2 Hypertensive heart and chronic kidney disease with heart failure and with stage 5 chronic kidney disease, or end stage renal disease; I50.9 Heart failure, unspecified; N18.6 End stage renal disease; K21.9 Gastro-esophageal reflux disease without esophagitis; M81.0 Age-related osteoporosis without current pathological fracture; M06.9 Rheumatoid arthritis, unspecified; E03.9 Hypothyroidism, unspecified; Z79.01 Long term (current) use of anticoagulants; Z95.0 Presence of cardiac pacemaker; X58.XXXD Exposure to other specified factors, subsequent encounter; Y83.8 Other surgical procedures as the cause of abnormal reaction of the patient, or of later complication, without mention of misadventure at the time of the procedure ==

== ENCOUNTER → 2021-11-22 | Outpatient (CLI) | payer MEDICARE | LOC: M.WC 11-15 09:30 | PROVIDERS: ATTEND Family Medicine | DX: T81.89XD Other complications of procedures, not elsewhere classified, subsequent encounter (principal); E11.622 Type 2 diabetes mellitus with other skin ulcer; I70.238 Atherosclerosis of native arteries of right leg with ulceration of other part of lower leg; L97.812 Non-pressure chronic ulcer of other part of right lower leg with fat layer exposed; S81.801D Unspecified open wound, right lower leg, subsequent encounter; E11.65 Type 2 diabetes mellitus with hyperglycemia; I48.20 Chronic atrial fibrillation, unspecified; E11.22 Type 2 diabetes mellitus with diabetic chronic kidney disease; I13.2 Hypertensive heart and chronic kidney disease with heart failure and with stage 5 chronic kidney disease, or end stage renal disease; I50.9 Heart failure, unspecified; N18.6 End stage renal disease; K21.9 Gastro-esophageal reflux disease without esophagitis; M81.0 Age-related osteoporosis without current pathological fracture; M06.9 Rheumatoid arthritis, unspecified; E03.9 Hypothyroidism, unspecified; Z79.01 Long term (current) use of anticoagulants; Z95.0 Presence of cardiac pacemaker; X58.XXXD Exposure to other specified factors, subsequent encounter ==